=== PATIENT | female | born 1950 | race African-American/Black ===

== ENCOUNTER 2017-11-22 07:33 | Day surgery (SDC) | payer MEDICARE ==
--- NOTE | 2017-11-18 14:15 | Pre-Procedure Note/Attestation ---
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 I attest that, if there was a reasonable possibility of needing a blood transfusion, the patient (or the patient's legal bottling equipment sales representative) was given the [facility] standardized written summary, pursuant to the [employer] Blood Safety Act ([place] Health and Safety Code # 1645, as amended). I attest that I re-evaluated the patient just prior to the surgery and that there has been no change in the patient's H&P, except as documented below: LEVI WINKLER Nov 18, 2017 14:15
--- NOTE | 2017-11-18 14:20 | Opthalmology H&P ---
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 LEVI WINKLER Nov 18, 2017 14:20
[~2017-11-22] VITALS: Ht 160 cm; Wt 77.1 kg
[2017-11-22] VITALS (9 sets, daily range): BP systolic 134–152; BP diastolic 66–78
[~2017-11-22 07:33] MED LIST: AMLODIPINE BESY10 MG ORAL; ASPIR 8181 MG ORAL; ATORVASTATIN CA40 MG ORAL; Akten 3.5% 1ml Btl LEFT EYE ONE; DIOVAN HCT 3201 EACH ORAL; Dexamethasone 4mg/ml vial ONE; METFORMIN HCL1000 M1 ORAL; Maxitrol Opth Oint 3.5gm ONE; Pred Forte 1% Opth Susp 1ml ONE; Proparacaine 0.5% Opth Soln 15ml LEFT EYE ONE; SYNTHROID100 MCG ORAL; TRESIBA FL200 UNIT/1 SQ; Tetracaine 0.5% Opth 4ml Soln LEFT EYE ONE
[2017-11-22] MEDS ORDERED: EPINEPHrine 1mg/1ml Amp ONE (10:29)
[2017-11-22] MEDS ORDERED: Pilocarpine 2% Opth 15ml Soln ONE (10:29)
[2017-11-22] MEDS ORDERED: BSS 15ml BTL ONE (10:30)
[2017-11-22] MEDS ORDERED: Sodium Hyaluronate 14 mg/ml 0.85ml ONE (10:30)
[2017-11-22] MEDS ORDERED: Povidone-Iodine 5% opth solution ONE ×2 (10:30→12:06)
[2017-11-22] MEDS ORDERED: BSS 500ml btl ONE (10:30)
[2017-11-22] MEDS: Tobramycin Op Soln 0.3% 5ml LEFT EYE SCH ×3 (10:36→11:00)
[2017-11-22] MEDS: Diclofenac Sod 0.1% Op Soln LEFT EYE SCH ×3 (10:36→11:01)
[2017-11-22] MEDS: Tropicamide 1% Opth 15ml Soln LEFT EYE SCH ×3 (10:36→11:00)
[2017-11-22] MEDS: Cyclopentolate 1% Opth Sol 2ml LEFT EYE SCH ×3 (10:36→11:00)
[2017-11-22] MEDS: Phenylephrine 10% Opth Soln 5ml LEFT EYE SCH ×3 (10:36→11:00)
[2017-11-22] MEDS ORDERED: Propofol 200mg/20ml IV ONE (11:45)
[2017-11-22] MEDS ORDERED: LR 1000ml ONE (11:45)
[2017-11-22] MEDS ORDERED: fentaNYL 100 mcg/2 mL IV ONE (11:45)
[2017-11-22] MEDS ORDERED: Sterile Water Irrig 1000ml IRRIG ONE (11:45)
[2017-11-22] MEDS ORDERED: Midazolam 2mg/2ml Inj ONE (11:45)
[2017-11-22] MEDS ORDERED: NS Irrig 1000ml ONE (11:45)
[2017-11-22] MEDS ORDERED: LR 1000ml 1,000 ML IVLG SCH (12:04)
--- NOTE | 2017-11-22 12:04 | Anethesia Preoperative Eval ---
Anesthesia Pre-op PMH/ROS General Date of Evaluation: Nov 22, 2017 Time of Evaluation: 11:40 Anesthesiologist: Tanner ASA Score: ASA 3 Mallampati Score Class I : Soft palate, uvula, fauces, pillars visible Class II: Soft palate, uvula, fauces visible Class III: Soft palate, base of uvula visible Class IV: Only hard plate visible Mallampati Classification: Class II Surgeon: Misty Diagnosis: L eye cataract Surgical Procedure: L eye cataract exraction Anesthesia History: none Family History: no anesthesia problems Allergies: Coded Allergies: No Known Allergies (Unverified , 11/18/17) Medications: see eMAR Past Medical History Cardiovascular: Reports: HTN, CAD; Denies: NE, valve dz, arrhythmia, other Pulmonary: Denies: asthma, COPD, CLARISA, other Gastrointestinal/Genitourinary: Reports: GERD; Denies: CRI, ESRD, other Neurologic/Psychiatric: Reports: depression/anxiety Endocrine: Reports: DM - on high dose insulin, hypothyroidism; Denies: steroids, other HEENT: Reports: cataract (L), cataract (R); Denies: glaucoma, [place] (L), [place] (R), other Hematology/Immune: Denies: anemia, DVT, bleeding disorder, other Musculoskeletal/Integumentary: Denies: OA, RA, DJD, DDD, edema, other PMH Narrative: as above PSxH Narrative: see chart Anesthesia Pre-op Phys. Exam Physician Exam Last Vital Signs Date Time Temp Pulse Resp B/P (MAP) Pulse Ox O2 Delivery O2 Flow Rate FiO2 11/22/17 10:38 97.0 62 18 134/67 100 Room Air 97.0 Constitutional: NAD, other Neurologic: CN 2-12 intact Cardiovascular: RRR, no M/R/G Respiratory: CTA Gastrointestinal: S/NT/ND Airway Exam Mallampati Score: Class II MO: full Neck: stiff ROM: full Teeth: missing Dentures: no upper, no lower Anesthesia Pre-op A/P Labs see chart Accucheck 81 at admission Studies Pre-op Studies: EKG - NSR Risk Assessment & Plan Assessment: ASA 3 Plan: MAC Status Change Before Surgery: No Pre-Antibiotics Drug: none Jona Armendariz MD Nov 22, 2017 12:04
[2017-11-22] MEDS ORDERED: fentaNYL 100 mcg/2 mL IV PRN (12:15)
--- NOTE | 2017-11-22 12:52 | Immediate Post-Op Evaluation ---
Immediate Post-Op Evalulation Immediate Post-Op Evalulation Procedure: L eye cataract extraction with IOL Date of Evaluation: Nov 22, 2017 Time of Evaluation: 12:51 IV Fluids: 400 Blood Products: none Estimated Blood Loss: none Urinary Output: none Blood Pressure Systolic: 146 Blood Pressure Diastolic: 74 Pulse Rate: 58 Respiratory Rate: 20 O2 Sat by Pulse Oximetry: 99 Temperature (Fahrenheit): 97.6 Pain Score (1-10): 1 Nausea: No Vomiting: No Complications none Patient Status: awake, patent, none Hydration Status: adequate Jona Armendariz MD Nov 22, 2017 12:52
[2017-11-23 08:02] VITALS: BP 136/75
--- NOTE | 2017-11-23 08:02 | 48 Hour Post Anesthesia Eval ---
Post Anesthesia Evaluation Procedure: L eye cataract extraction with IOL Date of Evaluation: Nov 22, 2017 Time of Evaluation: 14:10 Blood Pressure Systolic: 136 0: 75 Pulse Rate: 68 Respiratory Rate: 20 Temperature (Fahrenheit): 97.6 O2 Sat by Pulse Oximetry: 98 Airway: patent Nausea: No Vomiting: No Pain Intensity: 1 Hydration Status: adequate Cardiopulmonary Status: stable Mental Status/LOC: patient returned to baseline Follow-up Care/Observations: n/a Post-Anesthesia Complications: none Follow-up care needed: ready to discharge Jona Armendariz MD Nov 23, 2017 08:02
--- NOTE | 2017-11-23 13:15 | Brief Operative Note ---
Immediate Post Operative Note Operative Note Chief Complaint: blurry vision Pre-op Diagnosis: CATARACT, OS Procedure: phaco with IOL Post-op Diagnosis: Pseudophakia Post-op Diagnosis: same as pre-op Findings: consistent w/pre-op dx studies Surgeon: Misty Anesthesiologist: Marcello Anesthesia: MAC Specimen: none Complications: none Condition: stable Fluids: LR Estimated Blood Loss: none Drains: none Implant(s) used?: Yes LEVI WINKLER Nov 23, 2017 13:15
--- NOTE | 2017-11-23 13:31 | Operative Note - PDOC ---
Operative Note Operative Note Date of Operation/Procedure: Nov 22, 2017 Chief Complaint: blurry vision Pre-op Diagnosis: CATARACT, OS Procedure: phaco with IOL Post-op Diagnosis: Pseudophakia Post-op Diagnosis: same as pre-op Operative Findings: consistent w/pre-op dx studies Surgeon: Misty Anesthesiologist: Marcello Anesthesia: MAC Specimen: none Complications: none Condition: stable Fluids: LR Estimated Blood Loss: none Drains: none Implant(s) used?: Yes Indications for Procedure cataract Description of Procedure This patient has been complaining visually significant cataract in the affected eye with the best corrected visual acuity under moderate glare conditions worse. The patient complains of difficulties with glare in performing activities of daily living and wants to manage personal affairs with comfort and accuracy and see well enough to move with safety at home and outdoors. The risks, benefits and alternatives of the procedure were discussed with the patient in the office prior to scheduling surgery. All questions from the patient were answered after the surgical procedure was explained in detail. The risks of the procedure as explained to the patient include, but are not limited to, pain, infection, bleeding, loss of vision, retinal detachment, need for further surgery, loss of lens nucleus, double vision, etc. Alternative procedures were discussed which include, to do nothing or seek a second opinion. Informed consent for this procedure was obtained from the patient. The patient was referred to a primary care physician for a cardiopulmonary clearance prior to surgery, after proper evaluation was done patient was properly scheduled for outpatient surgery. The patient was brought to the operating room where the anesthesiologist established I.V. lines and cardiac monitoring leads. Mild intravenous sedation was administered. The patient was then prepared with a 5% solution of povidone -iodine to the conjunctival fornix and lashes, and a 5% solution of povidone- iodine to the lids and periorbital skin. The patient was then draped in the usual sterile fashion. A lid speculum was then placed in the operative eye. A keratome blade was then used to create a biplanar incision into the anterior chamber. Viscoelastics was then instilled into the anterior chamber. A capsulorrhexis was then fashioned with an utrata forceps followed by hydrodissection and hydro delineation of the lens nucleus with G 27 cannula. Paracentesis incision was made at 3 o'clock with sharp blade. The phacoemulsification unit, after being properly adjusted and tested, was then used to emulsify the nucleus followed by aspiration and irrigation of residual cortical material using I and A unit. Healon was then instilled into the anterior chamber. The corneal wound was then enlarged to the size of the optic with the alejandro keratome blade. The intraocular lens was then inspected for right power and size and thought to be satisfactory. Then the lens was gently placed in the capsular bag. Positioning within the capsular bag was confirmed by direct visualization. Optic centration was accomplished with a [place] hook. Viscoelastics was removed from the anterior chamber using the irrigation and aspiration unit. The corneal wound was then tested for leaks and none were found. The lid speculum were then removed. Sponge and needle counts were correct. An eye patch and shield were placed over the operative eye. The patient was taken to the recovery room in stable condition. There were no complications. The patient tolerated the procedure well. The patient was then transferred to the ambulatory surgery unit in stable and satisfactory condition , was given detailed written instructions and asked to follow up in the office the next day. LEVI WINKLER Nov 23, 2017 13:31
== END 2017-11-22 14:10 | disposition home or self-care (01) ==
LOC: SUR 07:33 → EDBD 10:45 → SUR 14:10
DX: H25.042 Posterior subcapsular polar age-related cataract, left eye (principal); I11.9 Hypertensive heart disease without heart failure; K21.9 Gastro-esophageal reflux disease without esophagitis; F32.9 Major depressive disorder, single episode, unspecified; F41.9 Anxiety disorder, unspecified; E11.9 Type 2 diabetes mellitus without complications; E03.9 Hypothyroidism, unspecified
CPT/HCPCS: 66984; 82962; J0171; J1100; J2250; J2704; J3010; J7120; V2632; 94003; 94150